=== PATIENT | female | born 1965 | race Caucasian/White ===

== ENCOUNTER 2022-09-24 14:30 | Emergency (ER) | payer OTHER ==
[~2022-09-24] VITALS: Ht 162.6 cm; Wt 77.1 kg
[2022-09-24 14:41] VITALS: BP 152/100
[2022-09-24] MEDS ORDERED: CEPH500T PO (14:51)
--- NOTE | 2022-09-24 14:59 | NUR ---
Patient discharged to home in stable condition. Written and verbal after care instructions given. Patient verbalizes understanding of instruction.
== END 2022-09-24 14:59 | disposition home or self-care (01) ==
LOC: ER 14:42
DX: L03.114 Cellulitis of left upper limb (principal)

== ENCOUNTER 2023-02-12 16:48 | Emergency (ER) | payer OTHER ==
[~2023-02-12] VITALS: Ht 162.6 cm; Wt 77.1 kg
[~2023-02-12 16:48] MED LIST: CEPH500T PO
[2023-02-12] MEDS ORDERED: VALA10002 PO (17:31)
[2023-02-12] MEDS ORDERED: GABA-532 PO (17:31)
[2023-02-12 17:42] VITALS: BP 135/85; TEMP 98.7; O2SAT 100
== END 2023-02-12 17:41 | disposition home or self-care (01) ==
LOC: ER 16:52
DX: B02.9 Zoster without complications (principal); Z79.899 Other long term (current) drug therapy; Z60.2 Problems related to living alone